=== PATIENT | male | born 1940 | race Caucasian/White ===

== ENCOUNTER 2022-05-21 21:10 | Emergency (ER) | payer MEDICARE, OTHER ==
[2022-05-21 22:03] LABS: ANION GAP 14.6 meq/L (7-15)
[2022-05-21] MEDS: Iopamidol 612 MG/ML 100 ML Bottle IVPUSH STA (22:26)
[2022-05-21 23:50] VITALS: BP 140/79; PULSE 71
== END 2022-05-21 23:30 | disposition home or self-care (01) ==
LOC: LL.ED 21:10
DX: K80.20 Calculus of gallbladder without cholecystitis without obstruction (principal); R91.1 Solitary pulmonary nodule; E03.9 Hypothyroidism, unspecified; E66.9 Obesity, unspecified; Z68.28 Body mass index [BMI] 28.0-28.9, adult; Z79.899 Other long term (current) drug therapy; Z79.82 Long term (current) use of aspirin; Z79.01 Long term (current) use of anticoagulants
CPT/HCPCS: 36415; 74177; 80053; 84484; 85025; 85610; 93005; 93010; 99284; Q9967

== ENCOUNTER 2024-03-09 11:27 | Day surgery (SDC) | payer MEDICARE, OTHER ==
[~2024-03-09 11:27] MED LIST: Midazolam 1 MG/ML 2 ML SDV ONE; Propofol 200 MG/20 ML SDV ONE
[2024-03-09] MEDS ORDERED: Sodium Chloride 0.9% 10 ML Syringe FLUSH PRN (12:00)
[2024-03-09] MEDS: Lactated Ringers 1,000 ML IV SCH (12:06)
[2024-03-09 14:05] VITALS: BP 135/76; PULSE 68
== END 2024-03-09 14:45 | disposition home or self-care (01) ==
LOC: LL.SDS 11:27
PROVIDERS: ATTEND Surgery
DX: C18.2 Malignant neoplasm of ascending colon (principal); K57.30 Diverticulosis of large intestine without perforation or abscess without bleeding; E03.9 Hypothyroidism, unspecified; E78.5 Hyperlipidemia, unspecified; Z79.899 Other long term (current) drug therapy
CPT/HCPCS: 00811; 88305; 88341; 88342; J2250; J2704; J7120